=== PATIENT | female | born 1965 | race Caucasian/White ===

== ENCOUNTER 2017-02-14 18:40 | Emergency (ER) | payer BC ==
[~2017-02-14] VITALS: Ht 154.9 cm; Wt 52.2 kg
[~2017-02-14 18:40] MED LIST: BETA TCP PO; BISM262T3 PO; CALC500C50 PO; CHOL1TAB46 PO; FAMO20TA11 PO; GFNSR600 PO; MAGN400T6 PO; MISCCAP80 PO; MULT-506 PO; MULTTAB58 PO; OMEG10007 PO
[2017-02-14 18:46] VITALS: Ht 154.9 cm; Wt 52.2 kg
--- NOTE | 2017-02-14 19:26 | DIAGNOSTIC IMAGING REPORT ---
RIGHT RIBS UNILATERAL WITH PA CHEST CLINICAL HISTORY: Right rib pain. Cough. COMPARISON STUDY: Chest x-ray dated 09/09/2011 FINDINGS: The erect chest reveals no pneumothorax. There are nodular right midlung zone airspace opacities, the largest of which measures 23 mm. Given [place] history of cough this may represent a focal pneumonitis. Short-term follow-up subsequent to antibiotic therapy is recommended as underlying mass cannot be excluded on the basis of this study. No rib fractures are visualized. There is slight interstitial prominence at the lung bases. There are no pleural effusions. IMPRESSION: 1. No evidence of pneumothorax 2. No right-sided rib fractures identified 3. Nonspecific nodular right midlung zone airspace opacities. Given the history of cough these may represent a focal pneumonia. Short-term follow-up subsequent to antibiotic therapy is recommended. Electronically signed by: Micha Gustafson M.D. 02/14/2017 7:25 PM Dictated Date/Time: 02/14/2017 7:22 PM
[2017-02-14] MEDS ORDERED: [UNRECOGNIZED DRUG - CODE] TOP (19:41)
[2017-02-14] MEDS ORDERED: GFNSR600 PO (19:41)
[2017-02-14] MEDS ORDERED: BUPR100T8 PO (19:41)
[2017-02-14] MEDS ORDERED: ACET-1256 PO (19:42)
[2017-02-14 19:53] VITALS: O2SAT 98
[2017-02-14 19:55] LABS: BASO % 0.2 %; BASO ABS # 0.02 K/uL (0-0.2); COMPLETE YES; EOS % 1.2 %; HEMATOCRIT 39.9 % (37-47); IG% 0.2 %; LYMPH % 13.9 %; LYMPH ABS # 1.29 K/uL (1.2-3.4); MEAN CELL VOLUME 94.3 fL (80-100); MEAN CORPUSCULAR HEMOGLOBIN 31.2 pg (25-34); MEAN CORPUSCULAR HGB CONC 33.1 g/dl (32-36); MEAN PLATELET VOLUME 11.2 fL (7.4-10.4); MONO % 8.7 %; NEUT % 75.8 %; PLATELET COUNT 235 K/uL (130-400); RED BLOOD COUNT 4.23 M/uL (4.2-5.4); WHITE BLOOD COUNT 9.31 K/uL (4.8-10.8)
[2017-02-14 20:08] LABS: PREG INTERNAL NEGATIVE QC NEG CLEAR BACKGROUND; PREG INTERNAL POSITIVE QC POS CONTROL LINE
[2017-02-14 20:13] LABS: CALCIUM 9.7 mg/dl (8.5-10.1); CREATININE 0.79 mg/dl (0.60-1.20); MAGNESIUM 2.3 mg/dl (1.8-2.4); POTASSIUM 3.6 mmol/L (3.5-5.1)
[2017-02-14 20:15] LABS: POINT OF CARE PRO-BNP 99 pg/ml (0-900); POINT OF CARE TROPONIN I < 0.030 ng/ml (0-0.045)
[2017-02-14 20:24] LABS: ALB/GLOB RATIO 0.9 (0.9-2); THYROID STIMULATING HORMONE 1.22 uIu/ml (0.300-4.500)
[2017-02-14] MEDS ORDERED: NORCO 5/325MG HOME PACK PO STA (20:38)
[2017-02-14] MEDS ORDERED: LEVOFLOXACIN 750 MG TAB PO STA (20:38)
--- NOTE | 2017-02-14 20:44 | EMERGENCY ROOM VISIT NOTE ---
History First contact with patient: 18:50 Chief Complaint: RIB PAIN Stated Complaint: RIGHT RIB PAIN History of Present Illness The patient is a 51 year old female who presents to the Emergency Room via private vehicle with complaints of "right rib pain". The patient states that she has been coughing for weeks, if not months. She states that she was told it is likely postnasal drip induced coughing. The patient states that she has been coughing quite hard yesterday and today, and when she woke up today she started developing pain in the right anterior chest. She rates the pain as an 8 /10, and is worse with a deep breath. This is an inspiratory chest pain. She notes that pressing the region on the right anterior chest helps. She does smoke, but does not take any hormones, denies any trauma or falls, has no shortness of breath, and only notes pain with a deep breath. Review of Systems A complete 10-point Review of Systems was discussed with the patient, with pertinent positives and negatives listed in the History of Present Illness. All remaining Review of Systems questions can be considered negative unless otherwise specified. Past Medical/Surgical History Skin problems, stomach problems, cholecystectomy, urinary problems Family History Diabetes, heart disease, high blood pressure, cancer, gallbladder disease. Social History Smoking Status: Current Some Day Smoker Alcohol Use: none Occupation Status: employed Current/Historical Medications Scheduled Acetaminophen (Tylenol), 500 MG PO PRN UD Bupropion (Wellbutrin Sr), 100 MG PO DAILY Calcium Carbonate (Antacid) (Tums), 1,000 MG PO DIRECTED Cholecalciferol (Vitamin D3), 5,000 INTERUNIT PO DAILY Estradiol & Norethindrone Acet (Combipatch), 1 PATCH TOP UD Levofloxacin (Levaquin), 1 TAB PO DAILY Multiple Vitamin (Multivitamin), 1 TAB PO DAILY Scheduled PRN Guaifenesin Ext Rel (Mucinex Ext Rel), 600 MG PO Q12 PRN for CONGESTION Hydrocodone/Acetaminophen 5MG/325MG ([place] 5MG/325MG), 1-2 TABLET PO Q6 PRN for Pain Probiotic Product (Probiotic), 1 CAP PO DAILY PRN for Physical Exam Vital Signs Date Time Temp Pulse Resp B/P (MAP) Pulse Ox O2 Delivery O2 Flow Rate FiO2 02/14/17 20:46 89 20 118/76 96 Room Air 02/14/17 19:53 98 Room Air 02/14/17 18:46 103 24 129/85 98 Room Air Physical Exam VITAL SIGNS - Vital signs and nursing notes were reviewed. Stable. GENERAL -51-year-old female appearing her stated age who is in no acute distress. Communicates well with provider and answers questions appropriately. SKIN - Without rashes. No petechial rashes. HEAD - NC/AT. LUNGS - Chest wall symmetric without accessory muscle use, intercostals retractions, or central cyanosis. Normal vesicular breath sounds CTA B/L. No wheezes, rales, or rhonchi appreciated. No Rubs, or gallops appreciated. There is minimal tenderness palpation overlying the right anterior chest. ABDOMEN - Abdominal contour without pulsations or visible masses. BS normoactive all four quadrants. No tenderness, palpable masses, hepatosplenomegaly, or ascites noted. Medical Decision & Procedures ER Provider Diagnostic Interpretation: RIGHT RIBS UNILATERAL WITH PA CHEST CLINICAL HISTORY: Right rib pain. Cough. COMPARISON STUDY: Chest x-ray dated 09/09/2011 FINDINGS: The erect chest reveals no pneumothorax. There are nodular right midlung zone airspace opacities, the largest of which measures 23 mm. Given [place] history of cough this may represent a focal pneumonitis. Short-term follow-up subsequent to antibiotic therapy is recommended as underlying mass cannot be excluded on the basis of this study. No rib fractures are visualized. There is slight interstitial prominence at the lung bases. There are no pleural effusions. IMPRESSION: 1. No evidence of pneumothorax 2. No right-sided rib fractures identified 3. Nonspecific nodular right midlung zone airspace opacities. Given the history of cough these may represent a focal pneumonia. Short-term follow-up subsequent to antibiotic therapy is recommended. Electronically signed by: Micha Gustafson M.D. 02/14/2017 7:25 PM Dictated Date/Time: 02/14/2017 7:22 PM Laboratory Results 02/14/17 19:45 Red Blood Count 4.23, Mean Corpuscular Volume 94.3, Mean Corpuscular Hemoglobin 31.2, Mean Corpuscular Hemoglobin Concent 33.1, Mean Platelet Volume 11.2, Neutrophils (%) (Auto) 75.8, Lymphocytes (%) (Auto) 13.9, Monocytes (%) (Auto) 8.7, Eosinophils (%) (Auto) 1.2, Basophils (%) (Auto) 0.2, Neutrophils # (Auto) 7.06, Lymphocytes # (Auto) 1.29, Monocytes # (Auto) 0.81, Eosinophils # (Auto) 0.11, Basophils # (Auto) 0.02 02/14/17 19:45 Test 02/14/17 19:45 02/14/17 19:51 White Blood Count 9.31 K/uL (4.8-10.8) Red Blood Count 4.23 M/uL (4.2-5.4) Hemoglobin 13.2 g/dL (12.0-16.0) Hematocrit 39.9 % (37-47) Mean Corpuscular Volume 94.3 fL (80-100) Mean Corpuscular Hemoglobin 31.2 pg (25-34) Mean Corpuscular Hemoglobin Concent 33.1 g/dl (32-36) Platelet Count 235 K/uL (130-400) Mean Platelet Volume 11.2 fL (7.4-10.4) Neutrophils (%) (Auto) 75.8 % Lymphocytes (%) (Auto) 13.9 % Monocytes (%) (Auto) 8.7 % Eosinophils (%) (Auto) 1.2 % Basophils (%) (Auto) 0.2 % Neutrophils # (Auto) 7.06 K/uL (1.4-6.5) Lymphocytes # (Auto) 1.29 K/uL (1.2-3.4) Monocytes # (Auto) 0.81 K/uL (0.11-0.59) Eosinophils # (Auto) 0.11 K/uL (0-0.5) Basophils # (Auto) 0.02 K/uL (0-0.2) RDW Standard Deviation 40.9 fL (36.4-46.3) RDW Coefficient of Variation 12.0 % (11.5-14.5) Immature Granulocyte % (Auto) 0.2 % Immature Granulocyte # (Auto) 0.02 K/uL (0.00-0.02) Anion Gap 6.0 mmol/L (3-11) Est Creatinine Clear Calc Drug Dose 63.5 ml/min Estimated GFR () 100.5 Estimated GFR (Non- 86.7 BUN/Creatinine Ratio 12.0 (10-20) Calcium Level 9.7 mg/dl (8.5-10.1) Magnesium Level 2.3 mg/dl (1.8-2.4) Total Bilirubin 0.4 mg/dl (0.2-1) Aspartate Amino Transf (AST/SGOT) 12 U/L (15-37) Alanine Aminotransferase (ALT/SGPT) 22 U/L (12-78) Alkaline Phosphatase 57 U/L (45-117) Total Protein 8.0 gm/dl (6.4-8.2) Albumin 3.8 gm/dl (3.4-5.0) Globulin 4.2 gm/dl (2.5-4.0) Albumin/Globulin Ratio 0.9 (0.9-2) Thyroid Stimulating Hormone (TSH) 1.220 uIu/ml (0.300-4.500) Human Chorionic Gonadotropin, Qual NEG (NEG) Bedside D-Dimer 207 ng/mlFEU (0-450) Bedside Troponin I < 0.030 ng/ml (0-0.045) XG-Vrg-R-Type Natriuretic Peptide 99 pg/ml (0-900) Medications Administered Medications (Trade) Dose Ordered Sig/[place] Route Start Time Stop Time Status Last Admin Dose Admin Acetaminophen/ Hydrocodone Bitart ([place] 5/325mg Home Pack) 1 homepack UD STAT PO 02/14/17 20:38 02/14/17 20:40 DC 02/14/17 20:55 1 HOMEPACK Levofloxacin (Levaquin Tab) 750 mg NOW STAT PO 02/14/17 20:38 02/14/17 20:40 DC 02/14/17 20:56 750 MG Medical Decision Patient was seen and evaluated as above. After obtaining a thorough history and physical examination radiographs with rib series were obtained of the chest and ribs. These were negative for fracture. She is nontoxic on exam. The patient is slightly tachycardic, and with questionable pneumonitis on the radiograph this time I will pursue blood work. CBC reveals no leukocytosis or anemia. Slight elevation of neutrophils. Point care d-dimer negative at 207. Patient's CMP reveals random glucose of 105, AST low at 12, globulin at 4.2. Troponin negative. BNP negative. EKG reveals normal sinus rhythm, rate of 90 bpm. TSH within normal limits. test negative. I discussed with the patient that she is most likely experiencing a pneumonia, and appears stable for outpatient management. However did inform her that it is possible there is an underlying mass, therefore radiology recommends follow-up in the short-term with x-rays. She was given the results of the x-ray. She was given Levaquin here, and I do not see any allergies listed or evidence of interaction with her current medicine. She was also given Troy for pain. She was given 1 tablet here with the remainder sent to her pharmacy. She was educated upon worrisome symptoms which to return, had questions or discharge, and was discharged home in good condition. In evaluation treatment this patient following differential diagnoses were entertained: Pneumonia, PE, MD, among others. [place] Drug Monitoring Program Search Results: patient reviewed within database, no issues identified Impression Primary Impression: Rib pain on right side Additional Impressions: Cough Pneumonia Departure Information Dispostion Home / Self-Care Condition GOOD Prescriptions Hydrocodone/Acetaminophen 5MG/325MG ([place] 5MG/325MG) Tab 1-2 TABLET PO Q6 Y for Pain, #15 TAB For Initial Treatment Prov: Sixto Isaacs PA-C 02/14/17 Levofloxacin (LEVAQUIN) 750 Mg Tab 1 TAB PO DAILY for 4 Days, #4 TAB Prov: Sixto Isaacs PA-C 02/14/17 Referrals Tommy Reece M.D. (PCP) Patient Instructions My [facility] Additional Instructions You have been treated in the Emergency Department for Rib pain and suspected pneumonia. You have received pain medicine in the emergency department which impairs your ability to operate a vehicle. It is illegal for you to drive after receiving these medicines. You have been prescribed NORCO to be used for pain control. This is a narcotic medication. You cannot drive or consume alcohol while on this medicine. This medicine should only be used for pain that cannot be controlled with over-the- counter pain medicines. You have been prescribed Levaquin to be taken as prescribed. This is an antibiotic. All antibiotics have the potential to cause diarrhea. Stop this medication and contact a medical provider if you were to develop any significant adverse side effects including: wheezing, shortness of breath, passing out, vomiting, or a diffuse rash. Always take antibiotics as directed and COMPLETE the ENTIRE course regardless of the improvement of your symptoms. This is one tablet daily. Please take the next one tomorrow night/evening. For pain control, you can use the following [id number] medicines (if >12 yo): - Regular strength (325mg/tab) Tylenol (acetaminophen) 2 tabs every 4-6 hours as needed. Do not exceed 12 tablets in a 24 hour period. Avoid taking more than 3 grams (3000 mg) of Tylenol per day. This includes any other sources of acetaminophen you may take on a regular basis. PLEASE NO TYLENOL WITH THE [employer] , as it already contains this medication. - Regular strength (200 mg/tab) Advil (ibuprofen) 1-2 tabs every 4-6 hours as needed. Do not exceed a dose of 3200 mg per day. If this is an acute injury, ice can be applied to the area of pain for the first 3 days to help decrease pain and inflammation. After the first 3 days, a heating pad can be used over the area for continued soothing relief. To minimize your discomfort, you can hug a pillow while coughing or sneezing. Additionally, you should continue to force yourself to take nice, deep breaths. Full expansion of the lungs is necessary to prevent the accumulation of fluid in the lung tissue and development of pneumonia. You should schedule a follow-up appointment in 2-3 days with your Primary Care Provider for further evaluation and treatment of your symptoms. It is recommended that you follow up with your family doctor regarding today's findings. I have listed the results of your chest x-ray below. As we discussed , it is most likely that you're experiencing pneumonia at this time, however it is recommended that you follow up with your family doctor to have a repeat chest x-ray to ensure that this finding on x-ray is not from other sources or causes. Please use the Incentive Spirometer several times per hour while awake to help move air in the lungs. Return to the Emergency Department if your current symptoms worsen despite treatment course outlined above, or if you develop any of the following symptoms : intractable pain despite aforementioned treatment course, development of a wet cough, bloody cough, fever, chills, or increased shortness of breath. Please return to the emergency department with any new/concerning symptoms. RIGHT RIBS UNILATERAL WITH PA CHEST CLINICAL HISTORY: Right rib pain. Cough. COMPARISON STUDY: Chest x-ray dated 09/09/2011 FINDINGS: The erect chest reveals no pneumothorax. There are nodular right midlung zone airspace opacities, the largest of which measures 23 mm. Given [place] history of cough this may represent a focal pneumonitis. Short-term follow-up subsequent to antibiotic therapy is recommended as underlying mass cannot be excluded on the basis of this study. No rib fractures are visualized. There is slight interstitial prominence at the lung bases. There are no pleural effusions. IMPRESSION: 1. No evidence of pneumothorax 2. No right-sided rib fractures identified 3. Nonspecific nodular right midlung zone airspace opacities. Given the history of cough these may represent a focal pneumonia. Short-term follow-up subsequent to antibiotic therapy is recommended. Problem Qualifiers
[2017-02-14 20:46] VITALS: BP 118/76; PULSE 89; O2SAT 96
[2017-02-14] MEDS ORDERED: LEVO-18 PO (21:01)
[2017-02-14] MEDS ORDERED: HYDR-5688 PO (21:04)
== END 2017-02-14 21:11 | disposition home or self-care (01) ==
LOC: C.EDB 18:43 → C.EDD 21:11
DX: R07.81 Pleurodynia (principal); R05 Cough; J18.9 Pneumonia, unspecified organism; Z83.3 Family history of diabetes mellitus; Z82.49 Family history of ischemic heart disease and other diseases of the circulatory system; F17.200 Nicotine dependence, unspecified, uncomplicated

== ENCOUNTER → 2017-04-22 | Outpatient (CLI) | payer BC ==
[~2017-04-22] MED LIST changes: +ACET-1256 PO; -BETA TCP PO; -BISM262T3 PO; +BUPR100T8 PO; -FAMO20TA11 PO; +HYDR-5688 PO; -MAGN400T6 PO; -MULT-506 PO; -OMEG10007 PO; +[UNRECOGNIZED DRUG - CODE] TOP
--- NOTE | 2017-04-22 14:52 | DIAGNOSTIC IMAGING REPORT ---
CHEST 2 VIEWS ROUTINE CLINICAL HISTORY: PNEUMONIA,COUGH dyspnea COMPARISON STUDY: 09/09/2011 FINDINGS: The bones soft tissues and hemidiaphragms are normal. The cardiomediastinal silhouette is normal. The lungs are clear. The pulmonary vasculature is normal. IMPRESSION: Negative chest. The above report was generated using voice recognition software. It may contain grammatical, syntax or spelling errors. Electronically signed by: Jake Marie M.D. 04/22/2017 2:51 PM Dictated Date/Time: 04/22/2017 2:51 PM
== END | disposition home or self-care (01) ==
LOC: C.RAD 14:27
PROVIDERS: ATTEND Family Medicine
DX: J18.9 Pneumonia, unspecified organism (principal); R05 Cough

== ENCOUNTER → 2017-05-06 | Outpatient (CLI) | payer OTHER ==
--- NOTE | 2017-05-06 16:34 | DIAGNOSTIC IMAGING REPORT ---
L SHOULDER MIN 2 VIEWS ROUTINE CLINICAL HISTORY: Left shoulder pain. COMPARISON: None FINDINGS: Alignment of the left shoulder is anatomic. No fracture is identified. There is mild arthritis of the left acromioclavicular and glenohumeral joints. IMPRESSION: 1. No acute fracture or dislocation of the left shoulder. 2. 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 Electronically signed by: Al Soares M.D. 05/06/2017 4:33 PM Dictated Date/Time: 05/06/2017 4:32 PM
== END | disposition home or self-care (01) ==
LOC: C.RAD1850 16:11
PROVIDERS: ATTEND Physician Assistant
DX: M25.512 Pain in left shoulder (principal)

== ENCOUNTER → 2017-07-15 | Outpatient (CLI) | payer BC ==
[~2017-07-15] MED LIST changes: +CLIN150C PO; +CRANPOW PO; +ESTR1DIS TOP; +FAMO20TA11 PO; +FLUT0.15 NAE; +MAGN400T6 PO; +OMEG10007 PO; +PRED20TA PO; +TRAM37.52 PO; -[UNRECOGNIZED DRUG - CODE] TOP
== END | disposition home or self-care (01) ==
LOC: C.LABBC 12:26
PROVIDERS: ATTEND Obstetrics & Gynecology
DX: N95.1 Menopausal and female climacteric states (principal)

== ENCOUNTER → 2017-07-15 | Outpatient (CLI) | payer BC | END | disposition home or self-care (01) | LOC: C.PAPS 14:50 | PROVIDERS: ATTEND Obstetrics & Gynecology | DX: Z01.419 Encounter for gynecological examination (general) (routine) without abnormal findings (principal) ==

== ENCOUNTER → 2017-09-08 | Outpatient (CLI) | payer OTHER ==
[~2017-09-08] MED LIST changes: -MAGN400T6 PO; -PRED20TA PO; -TRAM37.52 PO
--- NOTE | 2017-09-08 14:37 | DIAGNOSTIC IMAGING REPORT ---
SINUS CT WITHOUT CONTRAST CLINICAL HISTORY: Acute sinusitis. COMPARISON STUDY: Sinus CT August 18, 2006. Technique: Helical axial images of the sinuses were obtained without IV contrast. Coronal reformats were viewed. A dose lowering technique was utilized adhering to the principles of ALARA. CT DOSE: 568.35 mGy.cm FINDINGS: Visualized portions of the intracranial contents are unremarkable. Mastoid air cells are clear as are the middle ears. The ossicles are intact. Orbits are unremarkable. A small right maxillary sinus air-fluid level is noted with moderate polypoid mucosal thickening of the right maxillary sinus. There is mild mucosal thickening of the left maxillary sinus as well as mild mucosal thickening of the ethmoid sinuses. There are postoperative findings consistent with right maxillary antrostomy. A thin septum appears to be present. The right ostiomeatal complex is occluded by mucosal thickening. The left is patent. The sphenoethmoidal and frontoethmoidal recesses appear patent. There is no bony destruction. There is no mass within the sinuses with nasal cavities. There is been partial resection of the bilateral middle turbinates. IMPRESSION: 1. Right maxillary sinus air-fluid level which suggests acute sinusitis. Moderate polypoid mucosal thickening of the right maxillary sinus with mild mucosal thickening of the left maxillary and ethmoid sinuses. 2. Status post right maxillary antrostomy with apparent thin septation/septum within the operative bed. Occluded right ostiomeatal complex. Electronically signed by: Al Soares M.D. 09/08/2017 2:35 PM Dictated Date/Time: 09/08/2017 2:28 PM
== END | disposition home or self-care (01) ==
LOC: C.CTS 14:11
PROVIDERS: ATTEND Family Medicine
DX: J01.41 Acute recurrent pansinusitis (principal)

== ENCOUNTER → 2017-09-23 | Day surgery (SDC) | payer OTHER ==
[2017-09-15 13:30] VITALS: Ht 152.4 cm; Wt 54.5 kg
--- NOTE | 2017-09-21 12:48 | History and Physical: Surg Cnt ---
History & Physical Date Sep 21, 2017. Chief Complaint sinus infections History of Present Illness The patient is a 52 year old female with complaints of chronic sinusitis since septoplasty and middle turbinate resection in 2006 Additional History Hepatic Disease: No Endocrine Disorder: No Kidney Disease: No Hypertension: No Heart Disease: No Bleeding Tendencies: No Infectious Diseases: No Allergies Coded Allergies: Promethazine (Unverified Allergy, Mild, CAN'T REMEMBER, HAPPENED DURING CHILD ?, 09/15/17) Doxycycline (Verified Allergy, Unknown, RASH, 09/15/17) Meperidine (Verified Allergy, Unknown, TOLD NOT TO TAKE WITH PHENERGAN/? RX, 09/15/17) Paroxetine (Verified Allergy, Unknown, CAN'T REMEMBER, 09/15/17) Sertraline (Verified Allergy, Unknown, CAN'T REMEMBER, 09/15/17) Sulfamethoxazole w/Trimethoprim (Verified Adverse Reaction, Severe, REFLUX , 08/13/14) Prednisone (Verified Adverse Reaction, Mild, FAST HEART RATE, 08/30/09) Home Medications Scheduled Cholecalciferol (Vitamin D3), 5,000 INTERUNIT PO DAILY Clindamycin Hcl (Cleocin), 150 MG PO BID Famotidine (Pepcid), 20 MG PO HS Fish Oil ([place]-3), 1 CAP PO DAILY Fluticasone Propionate (Nasal) (Flonase Allergy Relief), 1 SPRAY TIMMY QAM Multiple Vitamin (Multivitamin), 1 TAB PO DAILY Probiotic Product (Probiotic), 1 CAP PO DAILY [Cranberry], 1 CAP PO DAILY Physical Examination Skin: warm/dry, no rash Eyes: normal inspection, EOMI, sclerae normal ENT: normal ENT inspection, pharynx normal Head: normocephalic, atraumatic Neck: supple, no adenopathy, trachea midline Respiratory/Chest: lungs clear, normal breath sounds, no respiratory distress Cardiovascular: regular rate, rhythm, no edema, no murmur Abdomen / GI: normal bowel sounds, non tender Back: normal inspection Extremities: normal inspection, normal range of motion Neurologic/Psych: no motor/sensory deficits, alert, normal reflexes, oriented x 3 Diagnosis chronic sinusitis Plan of Treatment endoscopic sinus surgery
[~2017-09-23] VITALS: Ht 152.4 cm; Wt 54.5 kg
[~2017-09-23] MED LIST changes: -ACET-1256 PO; +ATROPINE SULFATE 0.1 MG/ML 5ML SYR IV PRN; -BUPR100T8 PO; -CALC500C50 PO; +CEFAZOLIN 1000MG IV PUSH 7.5 ML IV SCH; +DEXAMETHASONE SOD INJ 4 MG/ML VIAL ONE; -ESTR1DIS TOP; +EpHEDrine SULFATE INJ 50 MG/ML AMP IV PRN; +EpHEDrine SULFATE INJ 50 MG/ML AMP ONE; +EpINEphrine INJ 1MG/ML AMP 1 MG/ML AMP ONE; +FENTANYL CITRATE INJ 50 MCG/1 ML 2 ML VIAL ONE; -GFNSR600 PO; -HYDR-5688 PO; +HYDROCODONE/ACETAMIN 5/325MG TAB PO PRN; +LACTATED RINGER'S 1000ML 1,000 ML IV SCH; +LIDO 2%/EPINEPHRINE 1:100000 20 ML VIAL INFIL ONE; +LIDOCAINE 4% MPF SOAK 5 ML = 1 DOSE TOP ONE; +LIDOCAINE HCL 2% 2 ML VIAL (20MG/ML) ONE; +MAGN400T6 PO; +MIDAZOLAM HCL 1 MG/ML 2ML VIAL ONE; +ONDANSETRON INJ 2 MG/ML 2 ML VIAL IV PRN; +ONDANSETRON INJ 2 MG/ML 2 ML VIAL ONE; +PROPOFOL IV EMULSION 10 MG/ML 20 ML VIAL IV ONE; +SODIUM CHLORIDE 0.9% 1000ML 1,000 ML IV SCH; +SODIUM CHLORIDE 0.9% INJ 10 ML VIAL ONE; +TRAM37.52 PO
--- NOTE | 2017-09-23 09:23 | History & Physical Bridge Note ---
H&P Re-Evaluation Bridge Note: I have examined the patient, reviewed the History & Physical and in the interval since the performance of the History & Physical I have noted the following changes of clinical significance: No changes noted
--- NOTE | 2017-09-23 09:25 | Discharge Instructions-SurgCtr ---
Discharge Instructions Date of Service Sep 23, 2017. Visit Reason for Visit: Chronic Sinusitis Discharge Discharge Diagnosis / Problem: Same Discharge Goals Goal(s): Improve disease control Activity Recommendations Activity Limitations: resume your previous activity Anesthesia . Post Anesthesia Instructions: If you have had General Anesthesia or IV Sedation: * Do not drive today. * Resume driving when surgeon permits. * Do not make important decisions or sign legal documents today. * Call surgeon for: 1. Temperature elevations greater than 101 degrees F. 2. Uncontrollable pain. 3. Excessive bleeding. 4. Persistent nausea and vomiting. 5. Medication intolerance (nausea, vomiting or rash). * For nausea and vomiting use only clear liquids such as: tea, soda, bouillon until nausea subsides, then gradually increase diet as tolerated. * If you have any concerns or questions, call your surgeon's office. If physician is unavailable and it is an emergency, call 911 or go to the nearest emergency room. . Instructions / Follow-Up Instructions / Follow-Up ACTIVITY RECOMMENDATIONS: * Being up and around is good, but no strenuous activity, heavy lifting or physical exertion for one week. * Keep your head elevated 30 degrees when lying down or sleeping. * Do not blow your nose for 48 hours, sniff back instead. * Avoid hot showers. OVER THE COUNTER MEDICATIONS: * You may use Tylenol * Avoid aspirin or aspirin containing products, e.g. as they may increase bleeding. SPECIAL CARE INSTRUCTIONS: * Expect to have bloody drainage from your nose and/or down your throat for one to three days. Change drip pad as needed. * Begin irrigating your nose with saline solution today, at least six to ten times per day and sniff back to help remove old clots or crust. * You may experience nasal and facial congestion, pain and pressure, this is normal. * Please call with any significant and/or progressive pain, redness, swelling around the eyes, visual changes, fever of 101.5 degrees F, active bleeding or any problems or concerns. * If active bleeding occurs, spray the nose three times at one minute intervals with Afrin spray and call or cell phone: . If unable to reach the doctor, go to the nearest Emergency Department. Special Diet: * Avoid extremely hot fluids. FOLLOW UP VISIT: Follow-up Visit with Dr. Nichols If not already scheduled, please call to schedule. Diet Recommendations Home Diet: no limitations Pending Studies Studies pending at discharge: no Medical Emergencies . Who to Call and When: Medical Emergencies: If at any time you feel your situation is an emergency, please call 911 immediately. . Non-Emergent Contact Non-Emergency issues call your: Primary Care Provider . . "Provider Documentation" section prepared by Meeta Nichols. .
--- NOTE | 2017-09-23 10:57 | [facility] Post Operative Brief Note ---
Immediate Operative Summary Operative Date Sep 23, 2017. Pre-Operative Diagnosis Chronic Sinusitis Post-Operative Diagnosis same Procedure(s) Performed Endoscopic Sinus Surgery, Right & Left Maxillary Sinuses, Right & Left Frontal Sinuses, Right & Left Total Ethmoidectomies Surgeon Dr. Jeannette Nichols Telephonic Case Manager Surgeon(s) 0 Estimated Blood Loss 30 Findings Consistent with Post-Op Diagnosis Specimens NONE Drains None Anesthesia Type General Complication(s) none Disposition Accompanied Pt To Recovery: yes Disposition: Recovery Room / PACU
[2017-09-23] MEDS: FENTANYL CITRATE INJ 50 MCG/1 ML 2 ML VIAL IV PRN ×3 (11:16→11:34)
--- NOTE | 2017-09-23 11:18 | [facility] Operative Report ---
Operative Report Operative Date Sep 23, 2017. Pre-Operative Diagnosis Chronic Sinusitis Post-Operative Diagnosis same Procedure(s) Performed Endoscopic Sinus Surgery, Right & Left Maxillary Sinuses, Right & Left Frontal Sinuses, Right & Left Total Ethmoidectomies Surgeon Dr. Jeannette Nichols Internal Controls Manager Surgeon(s) 0 Estimated Blood Loss 30 Findings Obstructed nasofrontal ducts, right silent sinus syndrome, OMC obstruction Specimens NONE Drains None Anesthesia Type General Complication(s) none Disposition yes Recovery Room / PACU Indications 52-year-old female with previous septoplasty and turbinate resection and right maxillary antrostomy developed chronic sinusitis for the last 5-10 years Description of Procedure The patient was brought to the operating room and placed in the supine position. General anesthesia was induced using LMA. PR Slides device was calibrated and used through the entire procedure. The patient was prepped and draped in the usual sterile manner. The nose was decongested using topical cottonoids with a solution of 4 cc of 4% Xylocaine mixed with 1 cc of epinephrine. Injection of 2% Xylocaine with 1-100,000 strength epinephrine was also used. The left maxillary sinus was cannulated with guidewire and dilated using 6 mm balloon as well as the right maxillary sinus. The right side had to be irrigated with 60 cc of saline to express tenacious fluid from the right maxillary sinus. The left nasal frontal duct was cannulated with the guidewire and dilated using the 6 mm balloon. The guidewire was left in place as a marker for frontal sinusotomy, which was performed using the shaver couple with the Brain[employer] device, opening up the anterior wall and then the posterior wall of the Agger nasi cell widely opening up the nasal frontal duct leaving the mucosa there intact. The nasal frontal duct was redilated with a 6 mm balloon. At this point total ethmoidectomy was performed using the shaver opening up the bullae ethmoidalis going through the ground lamella into the posterior ethmoid air cells, delineating the posterior most ethmoid air cell along with the skull base and lamina papyracea and following the structures and anteriorly exonerating all of the posterior and then all the anterior ethmoid air cells up to the previously dilated nasofrontal duct. Maxillary sinus was opened by removing the polypoid mucosa at the posterior border which is the anterior wall of the bullae ethmoidalis. The right frontal sinusotomy total ethmoidectomy and maxillary sinus antrostomy was performed in a similar manner. The contour stents were placed 1 in each nasofrontal duct and one in each maxillary sinus ostia. The patient tolerated procedure well and was taken to recovery area in satisfactory condition. I attest to the content of the Intraoperative Record and any orders documented therein. Any exceptions are noted below.
[2017-09-23 12:00] VITALS: TEMP 36.9
[2017-09-23 12:29] VITALS: BP 108/69; PULSE 83; O2SAT 96
--- NOTE | 2017-09-23 12:44 | Anesthesiology Progress Note ---
Anesthesia Post Op Note Date & Time Sep 23, 2017 at 12:44 Vital Signs Pain Intensity: 4.0 Vital Signs Past 12 Hours Date Time Temp Pulse Resp B/P (MAP) Pulse Ox O2 Delivery O2 Flow Rate FiO2 09/23/17 12:29 83 18 108/69 (82) 96 Room Air 09/23/17 12:00 36.9 81 18 104/67 (79) 97 Room Air 09/23/17 11:53 84 18 95 09/23/17 11:53 86 18 09/23/17 11:51 117/71 09/23/17 11:48 85 32 98 09/23/17 11:48 85 32 09/23/17 11:47 82 18 99 09/23/17 11:47 36.9 88 18 112/71 98 Room Air 09/23/17 11:47 82 18 09/23/17 11:46 112/71 09/23/17 11:42 89 15 98 09/23/17 11:42 89 15 09/23/17 11:41 114/63 09/23/17 11:37 93 15 95 09/23/17 11:37 92 15 09/23/17 11:36 119/73 09/23/17 11:32 98 17 09/23/17 11:32 99 17 99 09/23/17 11:31 123/74 09/23/17 11:27 90 15 100 09/23/17 11:27 92 15 09/23/17 11:26 123/76 09/23/17 11:22 90 17 100 09/23/17 11:22 90 17 09/23/17 11:21 126/82 09/23/17 11:17 91 25 100 09/23/17 11:17 92 25 09/23/17 11:16 122/77 09/23/17 11:12 99 18 09/23/17 11:12 91 18 100 09/23/17 11:11 126/77 09/23/17 11:07 95 18 09/23/17 11:07 94 18 100 09/23/17 11:06 133/81 09/23/17 11:05 89 16 09/23/17 11:05 88 16 100 09/23/17 11:01 132/83 09/23/17 11:00 36.5 103 16 132/63 100 Diffusion Mask 10 09/23/17 08:03 36.7 83 16 107/71 (83) 96 Room Air Notes Mental Status: alert / awake / arousable, participated in evaluation Pt Amnestic to Procedure: Yes Nausea / Vomiting: adequately controlled Pain: adequately controlled Airway Patency, RR, SpO2: stable & adequate BP & HR: stable & adequate Hydration State: stable & adequate Anesthetic Complications: no major complications apparent
== END | disposition home or self-care (01) ==
LOC: X.SURG 07:38
PROVIDERS: ATTEND Otolaryngology
DX: J32.9 Chronic sinusitis, unspecified (principal); K21.9 Gastro-esophageal reflux disease without esophagitis; R01.1 Cardiac murmur, unspecified; K44.9 Diaphragmatic hernia without obstruction or gangrene; Z88.1 Allergy status to other antibiotic agents; Z88.2 Allergy status to sulfonamides; Z88.8 Allergy status to other drugs, medicaments and biological substances; Z87.01 Personal history of pneumonia (recurrent); Z90.49 Acquired absence of other specified parts of digestive tract; Z90.89 Acquired absence of other organs; Z98.51 Tubal ligation status

== ENCOUNTER 2017-10-31 09:12 | Emergency (ER) | payer OTHER ==
[~2017-10-31] VITALS: Ht 154.9 cm; Wt 51.8 kg
[~2017-10-31 09:12] MED LIST changes: -ATROPINE SULFATE 0.1 MG/ML 5ML SYR IV PRN; -CEFAZOLIN 1000MG IV PUSH 7.5 ML IV SCH; -DEXAMETHASONE SOD INJ 4 MG/ML VIAL ONE; -EpHEDrine SULFATE INJ 50 MG/ML AMP IV PRN; -EpHEDrine SULFATE INJ 50 MG/ML AMP ONE; -EpINEphrine INJ 1MG/ML AMP 1 MG/ML AMP ONE; -FENTANYL CITRATE INJ 50 MCG/1 ML 2 ML VIAL ONE; -HYDROCODONE/ACETAMIN 5/325MG TAB PO PRN; -LACTATED RINGER'S 1000ML 1,000 ML IV SCH; -LIDO 2%/EPINEPHRINE 1:100000 20 ML VIAL INFIL ONE; -LIDOCAINE 4% MPF SOAK 5 ML = 1 DOSE TOP ONE; -LIDOCAINE HCL 2% 2 ML VIAL (20MG/ML) ONE; -MIDAZOLAM HCL 1 MG/ML 2ML VIAL ONE; -ONDANSETRON INJ 2 MG/ML 2 ML VIAL IV PRN; -ONDANSETRON INJ 2 MG/ML 2 ML VIAL ONE; -PROPOFOL IV EMULSION 10 MG/ML 20 ML VIAL IV ONE; -SODIUM CHLORIDE 0.9% 1000ML 1,000 ML IV SCH; -SODIUM CHLORIDE 0.9% INJ 10 ML VIAL ONE
[2017-10-31 09:14] VITALS: TEMP 36.8; Ht 154.9 cm; Wt 51.8 kg
--- NOTE | 2017-10-31 09:38 | EMERGENCY ROOM VISIT NOTE ---
History Report prepared by Jared: Dianelys Gallo Under the Supervision of: Dr. Donovan Morgan M.D. First contact with patient: 09:31 Chief Complaint: RASH Stated Complaint: RASH, HIVES & ITCHING History of Present Illness The patient is a 52 year old female who presents to the Emergency Room with complaints of a worsening rash. She states the rash started earlier this past week, about 7 days RECEPTIONIST SECRETARY, with "redness and itching" across her bilateral knuckles. The itching was worse at night. 2 nights ago, she woke up with bumps over her arms and legs, so she went to a local urgent care clinic where she was diagnosed with dermatitis and prescribed a steroid cream. She used the cream yesterday morning and last night, but woke up with increased itching this morning, so she came to the ED. She rates her discomfort as a 10/10 in severity. She has not taken Benadryl yet for her symptoms. The patient admits to 3 new changes in her usual routine in the past 2 weeks. There is a new bunny rabbit in her home, and she was recently placed on Trazodone and [place] that she started in place of Pepcid. She notes she does not think the rabbit is causing her symptoms because she holds him close to her chest and he "snuggles and kisses my face", yet she has not had any symptoms in those areas. The patient denies any itchy or watery eyes, throat swelling, or difficulty breathing. Source of History: patient Onset: 1 week RECEPTIONIST SECRETARY Position: arm (bilateral), hand (bilateral), leg (bilateral) Symptom Intensity: 10/10 Quality: other (itching) Timing: worsening Modifying Factors (Relieving): other (steroid cream) Associated Symptoms: No SOB Review of Systems See HPI for pertinent positives & negatives. A total of 10 systems reviewed and were otherwise negative. Past Medical & Surgical Medical Problems: (1) Anxiety (2) Depression (3) Environmental allergies (4) GERD (gastroesophageal reflux disease) Surgical Problems: (1) History of sinus surgery Social History Smoking Status: Current Every Day Smoker Alcohol Use: none Drug Use: none Marital Status: Housing Status: lives with family Occupation Status: employed Current/Historical Medications Scheduled Cholecalciferol (Vitamin D3), 5,000 INTERUNIT PO DAILY Clindamycin Hcl (Cleocin), 150 MG PO BID Famotidine (Pepcid), 20 MG PO HS Fish Oil ([place]-3), 1 CAP PO DAILY Fluticasone Propionate (Nasal) (Flonase Allergy Relief), 1 SPRAY TIMMY QAM Magnesium Oxide (Mag-Ox), 200 MG PO DAILY Multiple Vitamin (Multivitamin), 1 TAB PO DAILY Prednisone (Prednisone), 1 TAB PO DAILY Probiotic Product (Probiotic), 1 CAP PO DAILY [Cranberry], 1 CAP PO DAILY Scheduled PRN Tramadol-Acetaminophen (Ultracet), 1 TAB PO TID PRN for Pain Allergies Coded Allergies: Promethazine (Unverified Allergy, Mild, CAN'T REMEMBER, HAPPENED DURING CHILD ?, 09/23/17) Doxycycline (Verified Allergy, Unknown, RASH, 09/23/17) Meperidine (Verified Allergy, Unknown, TOLD NOT TO TAKE WITH PHENERGAN/? RX, 09/23/17) Paroxetine (Verified Allergy, Unknown, CAN'T REMEMBER, 09/23/17) Sertraline (Verified Allergy, Unknown, CAN'T REMEMBER, 09/23/17) Sulfamethoxazole w/Trimethoprim (Verified Adverse Reaction, Severe, REFLUX , 09/23/17) Prednisone (Verified Adverse Reaction, Mild, FAST HEART RATE, 09/23/17) Physical Exam Vital Signs Date Time Temp Pulse Resp B/P (MAP) Pulse Ox O2 Delivery O2 Flow Rate FiO2 10/31/17 09:14 36.8 104 20 122/74 99 Room Air Physical Exam GENERAL: Patient is in no acute distress. HEENT: No acute trauma, normocephalic atraumatic, mucous membranes moist, no nasal congestion, no scleral icterus. No uvular edema. NECK: No stridor, no adenopathy, no meningismus, trachea is midline. LUNGS: Clear to auscultation bilaterally, no wheeze, no rhonchi, breath sounds equal. HEART: Without murmurs gallops or rubs, regular rate and rhythm. ABDOMEN: Soft, nontender, bowel sounds positive, no hernias, no peritonitis. EXTREMITIES: No cyanosis or edema, full range of motion of all the joints without pain or difficulty, no signs for acute trauma. NEUROLOGIC: Oriented x 3, no acute motor or sensory deficits, no focal weakness. SKIN: Raised erythematous, slightly vesicular appearing (in a few areas) rash noted primarily on the dorsal hands, extending up the arms, with a few lesions on the legs, no true urticaria. No jaundice of the skin. Medical Decision & Procedures ED Course 0932: The patient was evaluated in room C1. A complete history and physical exam was performed. 0943: Prednisone 20 mg PO. 0945: Benadryl Cap50 mg PO. 0945: I reevaluated the patient. She is feeling well and is ready to go home. I discussed her discharge instructions and she verbalized complete understanding and agreement. Medical Decision The differential diagnoses considered include acute allergic reaction, environmental allergy, pet allergy, medication reaction, anaphylaxis, and uvular edema. The patient presents with an itchy rash primarily on her hands and arms. There is no uvular edema, no wheezing. She has a new rabbit in the house and has started some new medications. She is trying triamcinolone cream. I have advised the patient to limit if not completely stop her contact with the rabbit for now. She will stop both new medications for now as well. The patient is going to be using Zyrtec or Benadryl throughout the day, prednisone as well. She does not have a true allergy to prednisone, it caused her heart to race one time around 18 years ago. The patient was given oral Benadryl and oral prednisone. She is being discharged on both of these medications. 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 The cause for the rash is unclear although, a contact type reaction such as contact with the new rabbit seems most likely. Medication Reconcilliation Current Medication List: was personally reviewed by me Blood Pressure Screening Patient's blood pressure: Normal blood pressure Blood pressure disposition: Did not require urgent referral Impression Primary Impression: Allergic reaction Additional Impression: Rash Scribe Attestation The scribe's documentation has been prepared under my direction and personally reviewed by me in its entirety. I confirm that the note above accurately reflects all work, treatment, procedures, and medical decision making performed by me. Departure Information Dispostion Home / Self-Care Prescriptions Prednisone (Prednisone) 20 Mg Tab 1 TAB PO DAILY for 6 Days, #6 TAB Prov: Donovan Morgan M.D. 10/31/17 Referrals Tommy Reece M.D. (PCP) Patient Instructions My [facility] Additional Instructions use zyrtec or benadryl as we discussed use prednisone as directed stop both meds for now and limit your time with the rabbit as we discussed return for worsening symptoms see your air turning machine feeder continue the steroid cream Problem Qualifiers
[2017-10-31] MEDS ORDERED: PRED20TA PO (09:48)
[2017-10-31 10:00] VITALS: BP 126/82; PULSE 94; O2SAT 97
== END 2017-10-31 10:01 | disposition home or self-care (01) ==
LOC: C.EDC 09:39
DX: T78.40XA Allergy, unspecified, initial encounter (principal); R21 Rash and other nonspecific skin eruption; X58.XXXA Exposure to other specified factors, initial encounter; F41.9 Anxiety disorder, unspecified; F32.9 Major depressive disorder, single episode, unspecified; F17.200 Nicotine dependence, unspecified, uncomplicated; Z88.8 Allergy status to other drugs, medicaments and biological substances

== ENCOUNTER → 2018-02-09 | Outpatient (CLI) | payer OTHER ==
--- NOTE | 2018-02-09 17:29 | DIAGNOSTIC IMAGING REPORT ---
R FOOT MIN 3 VIEWS ROUTINE CLINICAL HISTORY: R TOE INJURY trauma. Pain. COMPARISON: None. DISCUSSION: The bones and joint spaces appear intact. There is no evidence of fracture, dislocation or bony disease. There is no evidence for soft tissue swelling. IMPRESSION: Negative study. The above report was generated using voice recognition software. It may contain grammatical, syntax or spelling errors. Electronically signed by: Jake Marie M.D. 02/09/2018 5:28 PM Dictated Date/Time: 02/09/2018 5:27 PM
== END | disposition home or self-care (01) ==
LOC: C.RAD 16:59
PROVIDERS: ATTEND Hospitalist
DX: S99.921A Unspecified injury of right foot, initial encounter (principal); M79.671 Pain in right foot; X58.XXXA Exposure to other specified factors, initial encounter